=== PATIENT | female | born 1990 | race Caucasian/White ===

== ENCOUNTER 2020-10-27 10:03 | Emergency (ER) | payer MEDICAID ==
[~2020-10-27] VITALS: Ht 157.5 cm; Wt 112.0 kg
[2020-10-27] MEDS ORDERED: KETOROLAC 30 MG/1 ML IVPush ONE (10:30)
[2020-10-27] MEDS ORDERED: SODIUM CHLORIDE FLUSH 10ML SYR IVF ONE (10:30)
[2020-10-27] MEDS ORDERED: SODIUM CHLORIDE 0.9% 1,000ML IVBOLUS ONE (10:30)
[2020-10-27] MEDS ORDERED: ONDANSETRON 2MG/ML, 2ML IVPush ONE (10:30)
[2020-10-27] MEDS ORDERED: KETOROLAC 30 MG/1 ML ONE (10:32)
[2020-10-27] MEDS ORDERED: ONDANSETRON 2MG/ML, 2ML ONE (10:32)
--- NOTE | 2020-10-27 10:40 | NUR ---
PT WENDY, EMS REPORTS PT WENT TO THIS MORNING WITH C/O L FLANK PAIN THAT STARTED 1 WK AGO THAT IS NOW RADIATING TO LLQ OF ABDOMEN SINCE YESTERDAY. PT HAS HX OF MS AND OVARIAN CYSTS. DENIES GALLBLADDER ISSUES. PT ALSO DENIES VOMITTING OR DIARRHEA. PT A&O, RESPS EVEN AND SLIGHTLY LABORED. PT ATTEMPTED TO VOID AND IS NOW IN 10/10 PAIN. MEDICATED PER ORDER, LITTLE RELIEF, AWARE, ORDERS RECIEVED.
[2020-10-27] MEDS ORDERED: KETAMINE 10 MG/ML, 20ML IV ONE (10:49)
[2020-10-27] MEDS ORDERED: PLEASE ENTER ALLERGIES MC SCH (11:00)
--- NOTE | 2020-10-27 11:00 | NUR ---
PT AMBULATORY TO BATHROOM, UNABLE TO PROVIDE SAMPLE
[2020-10-27] MEDS ORDERED: KETAMINE 10 MG/ML, 20ML ONE (11:11)
[2020-10-27 11:13] LABS: ALBUMIN 3.7 g/dL (3.4-5.0); ANION GAP 5 mmol/L (5-15); CALCIUM 8.7 mg/dL (8.5-10.1); CHLORIDE 112 mmol/L (98-107)
[2020-10-27 11:20] LABS: ALANINE AMINOTRANSFERASE 34 U/L (12-78); ALKALINE PHOSPHATASE 61 U/L (45-117); BILIRUBIN,TOTAL 0.4 mg/dL (0.2-1.0); CREATININE 0.73 mg/dL (0.55-1.02); TOTAL PROTEIN 7.3 g/dL (6.4-8.2)
--- NOTE | 2020-10-27 11:30 | NUR ---
PT REPORTS INTOLERABLE PAIN AFTER TORODAL, KETAMINE ORDERED AND ADMINISTERED VIA SLOW PUSH, PT TOLERATED WELL. ALL MONITORS IN PLACE, CALL LIGHT IN REACH
[2020-10-27 11:39] LABS: BASOPHILS % (AUTO) 0 % (0-1); EOSINOPHILS % (AUTO) 1 % (1-7); LYMPHOCYTES % (AUTO) 12 % (22-44); MEAN CORPUSCULAR HGB CONC 34.5 g/dL (32.4-35.8); MONOCYTES % (AUTO) 5 % (2-9); NEUTROPHILS % (AUTO) 82 % (42-75); PLATELET COUNT 306 x10^3/uL (130-400); RED BLOOD COUNT 4.59 x10^6/uL (3.82-5.3); RED CELL DISTRIBUTION WIDTH 12.6 % (9.6-15.2)
[2020-10-27 11:40] LABS: MD NO
--- NOTE | 2020-10-27 12:25 | NUR ---
preceptor note: edmd notified pt unable to void at this time, pt a&o, resps even and unlabored, denies pain. verbal order received for straight cath ua.
--- NOTE | 2020-10-27 12:36 | NUR ---
PT REQUESTING TO ATTEMPT TO VOID AT THIS TIME, GIVEN CLEAN CATCH UA INSTRUCTIONS AND SUPPLY. UP TO BATHROOM WITH STEADY GAIT AT THIS TIME.
--- NOTE | 2020-10-27 13:02 | NUR ---
PT ABLE TO VOID, UA SENT
--- NOTE | 2020-10-27 13:16 | NUR ---
PT SITTING UP IN BED, A&O, RESPS EVEN AND UNLABORED, ALL MONITORS ATTACHED, NSR, NADN. STATES PAIN HAS RESOLVED. CALL LIGHT IN REACH.
[2020-10-27 13:52] LABS: MICROSCOPIC INDICATED
[2020-10-27 14:30] VITALS: BP 96/78
--- NOTE | 2020-10-27 15:48 | NUR ---
DISCHARGE INSTRUCTIONS REVIEWED, PT EDUCATED ON FOLLOW-UP AND RETURN CRITERIA, VERBALIZED UNDERSTANDING. AMBULATORY TO DISCHARGE DESK WITH STEADY GAIT.
== END 2020-10-27 15:50 | disposition home or self-care (01) ==
LOC: ED 13:47
DX: N20.2 Calculus of kidney with calculus of ureter (principal); R10.9 Unspecified abdominal pain; R11.2 Nausea with vomiting, unspecified; R94.31 Abnormal electrocardiogram [ECG] [EKG]; Z88.2 Allergy status to sulfonamides
CPT/HCPCS: 36415; 74176; 80053; 81001; 84702; 85025; 93005; 96361; 96374; 96375; 99285; J1885; J2405; J7030